=== PATIENT | female | born 1960 | race Caucasian/White ===

== ENCOUNTER 2020-08-08 08:28 | Emergency (ER) | payer MEDICAID ==
[~2020-08-08] VITALS: Ht 157.5 cm; Wt 68.0 kg
[2020-08-08 08:48] VITALS: BP_SYST 158
[2020-08-08] MEDS ORDERED: LevALBUTEROL HCL 1.25 MG/0.5 ML *CONC.* VIAL.NEB (XOPENEX CONC.) INH ONE ×2 (09:15→11:00)
[2020-08-08] MEDS ORDERED: IPRATROPIUM BROM 0.5 MG/2.5 ML VIAL.NEB (ATROVENT) INH ONE (09:15)
[2020-08-08] MEDS ORDERED: predniSONE 20 MG TABLET PO ONE (09:15)
[2020-08-08] MEDS ORDERED: PRED20TA PO (11:43)
[2020-08-08 11:53] VITALS: BP_SYST 116
== END 2020-08-08 11:53 | disposition home or self-care (01) ==
LOC: SED 08:28
DX: J45.901 Unspecified asthma with (acute) exacerbation (principal); F17.290 Nicotine dependence, other tobacco product, uncomplicated
CPT/HCPCS: 71045; 94640; 99284; J7512; J7612

== ENCOUNTER 2021-01-14 10:43 | Emergency (ER) | payer MEDICAID ==
[~2021-01-14] VITALS: Ht 152.4 cm; Wt 71.7 kg
[~2021-01-14 10:43] MED LIST: PRED20TA PO
[2021-01-14 10:59] VITALS: BP_SYST 155
[2021-01-14] MEDS ORDERED: IPRATROPIUM BROM 0.5 MG/2.5 ML VIAL.NEB (ATROVENT) INH ONE (11:00)
[2021-01-14] MEDS ORDERED: ALBUTEROL SULFATE 0.083% 2.5 MG/3 ML VIAL.NEB INH ONE (11:00)
[2021-01-14] MEDS ORDERED: predniSONE 20 MG TABLET PO ONE (11:15)
[2021-01-14] MEDS ORDERED: ALBMDI INH (11:21)
[2021-01-14] MEDS ORDERED: PRED20TA PO (11:22)
[2021-01-14 11:26] LABS: BASOPHILS # (AUTO) 0.1 K/uL (0.0-0.2); BASOPHILS % (AUTO) 0.8 % (0.0-2.0); EOSINOPHILS # (AUTO) 0.1 K/uL (0.0-0.4); EOSINOPHILS % (AUTO) 0.8 % (0.0-4.0); HEMATOCRIT 39.1 % (36-48); HEMOGLOBIN 12.9 g/dL (12.0-16.0); LYMPHOCYTES # (AUTO) 0.7 K/uL (1.0-5.5); LYMPHOCYTES % (AUTO) 10.8 % (20.5-51.5); MEAN CORPUSCULAR HEMOGLOBIN 32 pg (27-31); MEAN CORPUSCULAR HGB CONC 33 % (32-36); MEAN CORPUSCULAR VOLUME 97 fL (79.0-98.0); MONOCYTES # (AUTO) 0.4 K/uL (0.0-1.0); MONOCYTES % (AUTO) 5.9 % (1.7-9.3); NEUTROPHILS # (AUTO) 5.6 K/uL (1.8-7.7); NEUTROPHILS % (AUTO) 81.7 % (40.0-70.0); PLATELET COUNT (AUTO) 196 K/uL (130-430); RED BLOOD CELL COUNT(AUTO) 4.03 MIL/uL (4.2-6.2); RED CELL DISTRIBUTION WIDTH 13.8 % (9.0-15.0); WHITE BLOOD COUNT (AUTO) 6.8 K/uL (4.8-10.8)
[2021-01-14 11:58] LABS: ANION GAP 9 (5-15); CALCIUM 8.7 mg/dL (8.4-11.0); CHLORIDE 104 mmol/L (98-107); CREATININE 0.73 mg/dL (0.55-1.30); GLUCOSE 120 mg/dL (70-99); POTASSIUM 3.4 mmol/L (3.5-5.1); SODIUM SERUM 142 mmol/L (136-145); UREA NITROGEN, BLOOD 11 mg/dL (8-21)
[2021-01-14 11:59] LABS: GFR AFRICAN AMERICAN 104 mL/min (>90)
[2021-01-14 12:07] LABS: ALANINE AMINOTRANSFERASE 41 U/L (12-78); ALBUMIN 3.6 g/dL (3.4-4.8); ASPARTATE AMINOTRANSFERASE 15 U/L (10-37); BILIRUBIN,DIRECT 0.1 mg/dL (0.0-0.3); LIPASE 71 U/L (73-393); TOTAL BILIRUBIN 0.2 mg/dL (0.0-1.0)
[2021-01-14 14:46] VITALS: BP_SYST 155
== END 2021-01-14 14:47 | disposition home or self-care (01) ==
LOC: SED 10:43
DX: J45.901 Unspecified asthma with (acute) exacerbation (principal); F17.290 Nicotine dependence, other tobacco product, uncomplicated; Z71.6 Tobacco abuse counseling; Z88.8 Allergy status to other drugs, medicaments and biological substances; Z79.899 Other long term (current) drug therapy; Z20.822 Contact with and (suspected) exposure to COVID-19
CPT/HCPCS: 36415; 71045; 80048; 80076; 83690; 83880; 84484; 85025; 86710; 87426; 93005; 94640; 99285; J7512; J7613

== ENCOUNTER 2021-01-16 08:12 | Emergency (ER) | payer MEDICAID, SELFPAY ==
[~2021-01-16] VITALS: Ht 157.5 cm; Wt 68.0 kg
[2021-01-16 08:12] VITALS: BP_SYST 129
[~2021-01-16 08:12] MED LIST changes: +ALBMDI INH
--- NOTE | 2021-01-16 08:12 | NUR ---
BROUGHT BACK TO BED #8 AND TRIAGED. REPORT GIVEN TO SHAHID
--- NOTE | 2021-01-16 08:19 | NUR ---
pt. came in with a asthmatic flare up, feels SOB, O2 sat 100% on RA, audible wheezing note, has non productive cough since yesterday, pt. states was here [facility] and given steroids but has had no improvement
--- NOTE | 2021-01-16 08:23 | NUR ---
ER at bedside examining patient.
[2021-01-16] MEDS: predniSONE 20 MG TABLET PO ONE (08:36)
--- NOTE | 2021-01-16 08:37 | NUR ---
RT here for breathing tx.
--- NOTE | 2021-01-16 08:37 | NUR ---
RESP THERAPIST AT BEDSIDE FOR EVALUATION AND TREATMENT
[2021-01-16] MEDS: IPRATROPIUM BROM 0.5 MG/2.5 ML VIAL.NEB (ATROVENT) INH ONE (08:42)
[2021-01-16] MEDS: LevALBUTEROL HCL 1.25 MG/0.5 ML *CONC.* VIAL.NEB (XOPENEX CONC.) INH ONE ×2 (08:42→10:28)
[2021-01-16] MEDS ORDERED: AZITHROMYCIN 250 MG TABLET PO ONE (09:30)
[2021-01-16] MEDS ORDERED: LevALBUTEROL HCL 1.25 MG/0.5 ML *CONC.* VIAL.NEB (XOPENEX CONC.) INH ONE (10:24)
[2021-01-16] MEDS ORDERED: ZIT250 PO (10:59)
[2021-01-16 11:12] VITALS: BP_SYST 130
--- NOTE | 2021-01-16 11:13 | NUR ---
Patient given written and verbal discharge instructions and verbalizes understanding. Dr. Nicholas discussed with patient the results and treatment provided. Patient in stable condition. ID arm band removed. Rx of Zithromax given. Patient educated on pain management and to follow up with PMD. Pain Scale 0. Opportunity for questions provided and answered. Medication side effect fact sheet provided.
== END 2021-01-16 11:12 | disposition home or self-care (01) ==
LOC: SED 08:12
DX: J45.901 Unspecified asthma with (acute) exacerbation (principal); Z88.8 Allergy status to other drugs, medicaments and biological substances; Z79.899 Other long term (current) drug therapy
CPT/HCPCS: 94640; 99284; J7512; J7612